=== PATIENT | male | born 1995 ===

== ENCOUNTER 2018-01-29 21:02 | Emergency (ER) | payer BC ==
[2018-01-29] MEDS ORDERED: Rabies Vaccine (RabAvert)* 2.5 UNITS VIAL IM ONE (21:20)
[2018-01-29] MEDS ORDERED: Rabies VIRUS VACCINE (Imovax)* 2.5 UNIT/ML 1 ML IM ONE (21:21)
[2018-01-29] MEDS ORDERED: Rabies Immune Globulin 10 ML* 150 UNIT/ML VIAL IM ONE (21:24)
--- NOTE | 2018-01-29 21:32 | UC ---
Bite Injury/Animal HPI - HPI Summary HPI Summary: patient had a bat in his apartment 3 weeks ago- he is from [place] where [place] ar no bats he did not know he should be concerned so he called the health department who advised him to come here to get RIG and start the vaccine series - History of Current Complaint Chief Complaint: UCBiteInjury Stated Complaint: BAT EXPOSURE Time Seen by Provider: 01/29/18 21:19 Hx Obtained From: Patient Pain Intensity: 0 Pain Scale Used: 0-10 Numeric Onset/Duration: Lasting Weeks - 3 Type of Bite: Wild Animal Has Animal Been Immunized?: N/A Animal Available for Observation: No Animal Control Notified: Yes - Allergies/Home Medications Allergies/Adverse Reactions: Allergies Allergy/AdvReac Type Severity Reaction Status Date / Time No Known Allergies Allergy Verified 01/29/18 21:11 Home Medications: Home Medications NK [No Home Medications Reported] 01/29/18 [History Confirmed 01/29/18] PMH/Surg Hx/FS Hx/Imm Hx Previously Healthy: Yes - Surgical History Surgical History: None - Family History Known Family History: Positive: None - Social History Occupation: Employed Full-time Lives: Alone Alcohol Use: Occasionally Substance Use Type: None Smoking Status (MU): Never Smoked Tobacco Review of Systems Constitutional: Negative Skin: Negative Eyes: Negative ENT: Negative Respiratory: Negative Cardiovascular: Negative Gastrointestinal: Negative Genitourinary: Negative Motor: Negative Neurovascular: Negative Musculoskeletal: Negative Neurological: Negative Psychological: Negative Is Patient Immunocompromised?: No All Other Systems Reviewed And Are Negative: Yes Physical Exam Triage Information Reviewed: Yes Appearance: Well-Appearing, No Pain Distress, Well-Nourished Vital Signs: Initial Vital Signs Temp 97.5 F 01/29/18 21:07 Pulse 96 01/29/18 21:07 Resp 18 01/29/18 21:07 BP 147/92 01/29/18 21:07 Pulse Ox 100 01/29/18 21:07 Vital Signs Reviewed: Yes Eye Exam: Normal Eyes: Positive: Conjunctiva Clear ENT Exam: Normal ENT: Positive: Normal ENT inspection, Hearing grossly normal. Negative: Nasal drainage, Trismus, Muffled voice, Hoarse voice Dental Exam: Normal Neck exam: Normal Neck: Positive: Supple, Nontender Respiratory Exam: Normal Respiratory: Positive: Chest non-tender, No respiratory distress, No accessory muscle use Cardiovascular Exam: Normal Cardiovascular: Positive: RRR, Pulses Normal, Brisk Capillary Refill Musculoskeletal Exam: Normal Musculoskeletal: Positive: Strength Intact, ROM Intact, No Edema Neurological Exam: Normal Neurological: Positive: Alert, Muscle Tone Normal Psychological Exam: Normal Skin Exam: Normal Bite Injury Course/Dx - Course Course Of Treatment: start rabies vaccine, rabies immune globlin, follow with health department, follow blood pressure with pcp referrals made - Differential Dx/Diagnosis Provider Diagnoses: Bat exposure, elevated blood pressure with out dx of hypertension Discharge - Sign-Out/Discharge Documenting (check all that apply): Patient Departure All imaging exams completed and their final reports reviewed: No Studies - Discharge Plan Condition: Stable Disposition: HOME Patient Education Materials: Rabies Vaccine (By injection), Rabies Immune Globulin (By injection), Rabies (ED), Hypertension (ED) Referrals: No Primary Care Phys,NOPCP [Primary Care Provider] - [facility] [place] [facility] [Outside] - 2 Weeks - Billing Disposition and Condition Condition: STABLE Disposition: Home
== END 2018-01-29 22:12 | disposition home or self-care (01) ==
LOC: UCEAST 21:02
DX: Z20.3 Contact with and (suspected) exposure to rabies (principal); Z29.14 Encounter for prophylactic rabies immune globulin
CPT/HCPCS: 90375; 90471; 90675; 96372; 99201; G0463